=== PATIENT | male | born 1965 | race Caucasian/White ===

== ENCOUNTER 2018-03-23 16:16 | Emergency (ER) | payer OTHER, SELFPAY ==
[2018-03-23 16:21] VITALS: BP 172/101; PULSE 69; RESP 16; TEMP 36.3; O2SAT 100
--- NOTE | 2018-03-23 16:50 | PC.NURSE ---
attempted to get EKG from the walkin clinic, they said it was scanned in, unable to see it in cardio clinical psychologist licensed, made RT aware to help retrieve it.
--- NOTE | 2018-03-23 16:55 | PC.NURSE ---
unable to obtain EKG from earlier today at [facility], called [facility] back. they are looking for hard copy.
[2018-03-23 16:56] VITALS: BP 157/94; PULSE 76; RESP 16; O2SAT 100
--- NOTE | 2018-03-23 17:10 | DI.RAD.S_ITS ---
PROCEDURE: XR CHEST 1V INDICATIONS: dizziness TECHNIQUE: One view of the chest was acquired. COMPARISON: None. FINDINGS: Surgical changes and devices: None. Lungs and pleura: No pleural effusions or pneumothorax. Lungs are clear. Mediastinum: Mediastinal contours appear normal. Heart size is normal. Bones and chest wall: No suspicious bony lesions. Overlying soft tissues appear unremarkable. IMPRESSION: No acute cardiopulmonary disease. Dictated by: Mar Felix M.D. on 03/23/2018 at 17:36 Approved by: Mar Felix M.D. on 03/23/2018 at 17:37
[2018-03-23 17:21] LABS: Add Manual Diff / Slide Review NO; Basophils Percent Auto 0.4 % (0-2); Eosinophils Percent Auto 1.8 % (2-4); Hematocrit 44.6 % (41-53); Hemoglobin 15.2 g/dL (13.5-17.5); Lymphocytes Percent Auto 19.4 % (25-40); Mean Corpuscular HGB Conc 34.2 % (30-36); Mean Corpuscular Hemoglobin 30.6 PG (26-34); Mean Corpuscular Volume 89.4 fL (80-100); Monocytes Percent Auto 7.7 % (3-14); Neutrophils Absolute Auto 5600 /uL (1500-7000); Neutrophils Percent Auto 70.7 % (50-75); Platelet Count 227 X10^3/uL (150-400); Red Blood Cell Count 4.99 X10^6/uL (4.5-5.9); Red Cell Distribution Width 13.4 % (11.6-14.8)
[2018-03-23 17:24] LABS: Alanine Aminotransferase 41 IU/L (21-72); Albumin 4.9 g/dL (3.5-5.0); Albumin Globulin Ratio 1.5 (1.0-2.8); Alkaline Phosphatase 56 U/L (38-126); Aspartate Aminotransferase 33 IU/L (17-59); BUN Creatinine Ratio 16.7 (6-22); Bilirubin Total 0.6 mg/dL (0.2-1.3); Blood Urea Nitrogen 15 mg/dL (9-20); Calcium 9.4 mg/dL (8.4-10.2); Carbon Dioxide 27 mmol/L (22-32); Chloride 102 mmol/L (98-107); Creatine Kinase 137 U/L (55-170); Estimated Glomerular Filt Rate > 60.0 mL/min (>60); Globulin 3.3 g/dL (1.7-4.1); Glucose 91 mg/dL (70-100); HEMOLYSIS < 15 (0-50); Potassium 3.8 mmol/L (3.4-5.1); Sodium 144 mmol/L (137-145); Total Protein 8.2 g/dL (6.3-8.2)
[2018-03-23] MEDS: SODIUM CHLORIDE 0.9% 1,000 ML 1000 ML IV (17:26)
[2018-03-23 17:36] LABS: Troponin I < 0.012 ng/mL (0.01-0.034)
[2018-03-23 17:40] LABS: CKMB % Relative Index 1.7 % (1.5-5.0); Creatine Kinase MB 2.31 ng/mL (<2.37)
--- NOTE | 2018-03-23 17:53 | ED.DIZZY ---
HPI - Dizziness General Chief Complaint: Dizziness Stated Complaint: SENT FOR LAB WORK Time Seen by Provider: 03/23/18 16:31 Source: patient Mode of arrival: ambulatory Limitations: no limitations History of Present Illness HPI Narrative: Patient was sent to the emergency department after presenting at clinic with lightheadedness/dizziness. The walk-in clinic provider called and requested that the patient be seen here in the emergency department for workup for his dizziness, which walk-in provider was not able to perform. complaint: lightheadedness Onset (ago): day(s) Timing: gradual onset Description: lightheadedness History of similar episodes: No History of trauma: No Severity: mild Relieving factors: nothing Exacerbating factors: position Associated symptoms: denies other symptoms Related Data Home Medications Medication Instructions Recorded Confirmed No Known Home Medications 03/23/18 03/23/18 Allergies Allergy/AdvReac Type Severity Reaction Status Date / Time No Known Allergies Allergy Uncoded 03/23/18 16:21 Review of Systems Review of Systems All systems reviewed & are unremarkable except as noted in HPI and below Constitutional Denies chills, Denies fever(s), Denies lethargy and Denies weakness Eyes Denies change in vision, Denies eye discharge, Denies irritation and Denies loss of vision ENT Ears, Nose, Mouth, and Throat: Denies change in voice, Reports dizziness, Denies neck pain and Denies sore throat Cardiovascular Denies chest pain, Denies irregular heart rhythm, Reports lightheadedness, Denies palpitations, Denies dyspnea, Denies dyspnea on exertion and Denies orthopnea Respiratory Denies cough, Denies dyspnea, Denies dyspnea on exertion and Denies wheezing Gastrointestinal Gastrointestinal: Denies abdominal pain, Denies change in bowel habits, Denies diarrhea, Denies nausea and Denies vomiting Genitourinary Denies hematuria, Denies flank pain, Denies urinary incontinence and Denies urinary urgency Musculoskeletal Denies neck pain Integumentary/Breasts Denies pruritus, Denies erythema, Denies rash and Denies wounds Neurologic Denies confusion, Reports dizziness, Denies loss of vision and Denies weakness Psychiatric Denies anxiety, Denies confusion, Denies depression, Denies homicidal ideation and Denies suicidal ideation Endocrine Denies palpitations Hematologic/Lymphatic Denies easy bruising Allergic/Immunologic Denies wheezing [facility] Medical History Healthy adult (Acute) Surgical History No pertinent past surgical history (Acute) Social History Smoking Status: Never smoker Exam Initial Vital Signs Initial Vital Signs: Vital Signs Temperature 97.3 F L 03/23/18 16:21 Pulse Rate 69 03/23/18 16:21 Respiratory Rate 16 03/23/18 16:21 Blood Pressure 172/101 H 03/23/18 16:21 Pulse Oximetry 100 03/23/18 16:21 Const General: cooperative and well developed Nutritional Appearance: well nourished Orientation: alert, awake, oriented x3 and not confused HENMT Head: normocephalic and atraumatic Ears: external ears normal Nose: external nose normal and No nasal discharge Face and sinus: face symmetric and No dry mucous membranes Mouth: oral mucosae normal and moist mucous membranes Teeth and gingiva: dentition normal Eyes General: appearance normal, both eyes and all related structures Eyelids: eyelids normal Conjunctivae: conjunctivae normal Sclera: sclerae normal Pupils: PERRL EOM: EOM intact bilaterally Neck Neck: normal visual inspection, trachea midline, No lymphadenopathy, No midline deformity and No JVD Lymphatic: No lymphedema Chest Chest: normal inspection of the chest Resp Effort & Inspection: normal respiratory effort, able to speak in complete sentences, no respiratory distress and no use of accessory muscles Auscultation: clear to auscultation bilaterally, no rales, no rhonchi and no wheezes Cardio Rate: regular rate Rhythm: regular rhythm Heart Sounds: no click, no gallops, no murmurs and no rubs Pulses: normal peripheral pulses GI Inspection: non-distended Palpation: soft, no hepatosplenomegaly, No guarding, No pulsatile mass and No tender Back/Spine/Pelvis Back: No CVA tenderness Cervical Spine: cervical ROM normal and No pain with cervical ROM Thoracic/Lumbar Spine: thoracic and lumbar spine normal to inspection Skin General: no rashes or lesions noted, No jaundice and No petechiae Neuro General: alert, oriented x3, gait normal and no focal motor deficits Speech: speech normal Extrem General: full ROM, no clubbing, cyanosis or edema, no pedal edema and no calf tenderness Psych Appearance: well kempt Mental Status: mental status grossly normal Attitude: cooperative Thought Content: normal and suicidality Judgment: judgment good Course Course Narrative: Patient was given a L of 0.9 normal saline, and worked up with laboratory studies and EKG for his lightheadedness. Workup was unremarkable. We have discussed that no emergent cause the patient's symptoms have been found today. The patient continues to have feelings of lightheadedness or palpitations, then he will need to follow up his primary care physician and probably wear a Holter monitor to further evaluate what may be going on. We have also discussed the usual indications for return to the emergency department. Orders Ordered: Discontinued Medications Sodium Chloride (Normal Saline 0.9%) 1,000 mls @ 1,000 mls/hr IV BOLUS ONE Stop: 03/23/18 18:09 Last Infusion: 03/23/18 18:24 Dose: 0 mls/hr Admin: 03/23/18 17:26 Dose: 1,000 mls/hr Vital Signs - 8 hr 03/23/18 16:21 03/23/18 16:56 Temperature 97.3 F L Pulse Rate 69 76 Respiratory Rate 16 16 Blood Pressure 172/101 H Blood Pressure [Left Arm] 157/94 H Pulse Oximetry 100 100 MDM - Dizziness Medical Records Attestation: I reviewed the patient's medical records. Lab Data Attestation: I reviewed the patient's lab results. Result diagrams: 03/23/18 16:35 03/23/18 16:35 Lab Results 03/23/18 03/23/18 03/23/18 Range/Units 16:35 16:35 16:35 WBC 8.0 (4.5-11.0) X10^3/uL RBC 4.99 (4.5-5.9) X10^6/uL Hgb 15.2 (13.5-17.5) g/dL Hct 44.6 (41-53) % MCV 89.4 (80-100) fL MCH 30.6 (26-34) PG MCHC 34.2 (30-36) % RDW 13.4 (11.6-14.8) % Plt Count 227 (150-400) X10^3/uL Neut % (Auto) 70.7 (50-75) % Lymph % (Auto) 19.4 L (25-40) % Hanson % (Auto) 7.7 (3-14) % Eos % (Auto) 1.8 L (2-4) % Baso % (Auto) 0.4 (0-2) % Neut # (Auto) 5600 (5442-2727) /uL Sodium 144 (137-145) mmol/L Potassium 3.8 (3.4-5.1) mmol/L Chloride 102 (98-107) mmol/L Carbon Dioxide 27 (22-32) mmol/L BUN 15 (9-20) mg/dL Creatinine 0.90 (0.66-1.25) mg/dL Estimated GFR > 60.0 (>60) mL/min BUN/Creatinine Ratio 16.7 (6-22) Glucose 91 (70-100) mg/dL Calcium 9.4 (8.4-10.2) mg/dL Total Bilirubin 0.6 (0.2-1.3) mg/dL AST 33 (17-59) IU/L ALT 41 (21-72) IU/L Alkaline Phosphatase 56 (38-126) U/L Total Creatine Kinase 137 (55-170) U/L CK-MB (CK-2) 2.31 (<2.37) ng/mL CK-MB (CK-2) Rel Index 1.7 (1.5-5.0) % Troponin I < 0.012 (0.01-0.034) ng/mL Total Protein 8.2 (6.3-8.2) g/dL Albumin 4.9 (3.5-5.0) g/dL Globulin 3.3 (1.7-4.1) g/dL Albumin/Globulin Ratio 1.5 (1.0-2.8) TSH 4.62 (0.47-4.68) uIU/mL ECG Data Attestation: I personally reviewed and interpreted this ECG as follows: Interpretation: Twelve lead EKG performed March 23, 2018 at 4:55 p.m., as follows: Regular ventricular rhythm with a rate of 72 beats per minute HI interval 195 millisecond QRS duration 103 millisecond QTC interval [address] T wave changes In summary: Normal sinus rhythm, incomplete right bundle branch block, no STEMI; borderline EKG as interpreted by ED MD. Improved when compared with EKG performed earlier today at 3:57 p.m.. Discharge Plan Departure Patient Disposition: Home Clinical Impression: Near syncope Discharge Date/Time: 03/23/18 18:30 Interventions: ED Discharge Assessment Last Done: 03/23/18 18:30 Instructions: DI for Dizziness-Nonvertigo Activity Restrictions/Additional Instructions: All of your labs look good, as does your EKG. There is no evidence of a serious condition causing your symptoms at this time. Please follow up in primary care to discuss having a cardiac stress test done, and possibly, wearing a Holter monitor. If you have more severe episodes that do not resolve on their own, or should you experience chest pain shortness of breath along with further dizziness, please return to the emergency department. Prescriptions: No Action No Known Home Medications RF: 0 Referrals: [facility] [Provider Group] [facility] [Provider Group]
[2018-03-23 18:06] LABS: Thyroid Stimulating Hormone 4.62 uIU/mL (0.47-4.68)
[2018-03-23 18:17] VITALS: BP 143/86; PULSE 71; RESP 11; O2SAT 100
== END 2018-03-23 18:30 | disposition home or self-care (01) ==
PROVIDERS: Emergency Provider Emergency Medicine
DX: R55 Syncope and collapse (principal)
CPT/HCPCS: 36591; 71045; 80053; 82550; 82553; 84443; 84484; 85025; 93005; 93010; 93041; 96360; 99283; 99285

== ENCOUNTER → 2018-12-06 16:43 | Outpatient (CLI) | payer OTHER, SELFPAY ==
--- NOTE | 2018-12-06 16:46 | DI.RAD.S_ITS ---
PROCEDURE: XR FOOT LT MIN 3V INDICATIONS: Heel pain and swelling, limping gait TECHNIQUE: 3 views of the foot were acquired. COMPARISON: None. FINDINGS: Bones: No fractures or dislocations. No suspicious bony lesions. Soft tissues: No tibiotalar joint effusion. Achilles tendon appears normal. IMPRESSION: No evidence acute bony abnormality of the left foot Dictated by: Clay Andino M.D. on 12/06/2018 at 17:01 Approved by: Clay Andino M.D. on 12/06/2018 at 17:02
== END ==
PROVIDERS: Visit Provider Physician Assistant
DX: M79.672 Pain in left foot (principal); R26.89 Other abnormalities of gait and mobility
CPT/HCPCS: 73630

== ENCOUNTER → 2019-06-16 08:10 | Outpatient (CLI) | payer OTHER, SELFPAY ==
[2019-06-16 09:37] LABS: Add Manual Diff / Slide Review NO; Basophils Absolute Auto 0 /uL (0-100); Basophils Percent Auto 0.9 % (0-2); Eosinophils Absolute Auto 200 /uL (0-450); Eosinophils Percent Auto 3.7 % (2-4); Hematocrit 43.6 % (41-53); Lymphocytes Absolute Auto 1000 /uL (1100-4500); Lymphocytes Percent Auto 19.9 % (25-40); Mean Corpuscular HGB Conc 34.5 % (30-36); Mean Corpuscular Hemoglobin 31.3 PG (26-34); Mean Corpuscular Volume 90.6 fL (80-100); Monocytes Absolute Auto 400 /uL (0-900); Monocytes Percent Auto 8.3 % (3-14); Neutrophils Absolute Auto 3500 /uL (1500-7000); Neutrophils Percent Auto 67.2 % (50-75); Platelet Count 219 X10^3/uL (150-400); Red Blood Cell Count 4.81 X10^6/uL (4.5-5.9); Red Cell Distribution Width 12.9 % (11.6-14.8); White Blood Cell Count 5.3 X10^3/uL (4.5-11.0)
[2019-06-16 09:52] LABS: Hemoglobin A1C% w Est Avg Glu 5.5 % (4.0-6.0)
[2019-06-16 11:13] LABS: Alanine Aminotransferase 44 IU/L (<50); Albumin 4.6 g/dL (3.5-5.0); Albumin Globulin Ratio 1.5 (1.0-2.8); Alkaline Phosphatase 57 U/L (38-126); Aspartate Aminotransferase 30 IU/L (17-59); Bilirubin Total 1.1 mg/dL (0.2-1.3); Blood Urea Nitrogen 12 mg/dL (9-20); Calcium 9.9 mg/dL (8.4-10.2); Carbon Dioxide 27 mmol/L (22-32); Chloride 103 mmol/L (98-107); Cholesterol 233 mg/dL (140-199); Estimated Glomerular Filt Rate > 60.0 mL/min (>60); Glucose 106 mg/dL (70-100); HDL Cholesterol 30 mg/dL (40-60); HEMOLYSIS < 15 (0-50); LDL Cholesterol Calculated 160 mg/dL (<100); Potassium 4.4 mmol/L (3.4-5.1); Sodium 139 mmol/L (137-145); Total Protein 7.6 g/dL (6.3-8.2); Triglycerides 215 mg/dL (35-150)
== END ==
PROVIDERS: PCP Family Medicine; Referring Provider Family Medicine; Visit Provider Family Medicine
DX: Z00.00 Encounter for general adult medical examination without abnormal findings (principal)
CPT/HCPCS: 36415; 80053; 80061; 83036; 84443; 85025

== ENCOUNTER → 2020-01-08 15:24 | Outpatient (CLI) | payer OTHER, SELFPAY ==
[2020-01-10 08:40] LABS: COVID19 Sendout Not Detected (Not Detect)
== END ==
PROVIDERS: PCP Family Medicine; Visit Provider Physician Assistant
DX: Z11.59 Encounter for screening for other viral diseases (principal)
CPT/HCPCS: 87635

== ENCOUNTER → 2020-01-10 07:00 | Outpatient (CLI) | payer OTHER, SELFPAY ==
[2020-01-10 07:53] LABS: Cholesterol 156 mg/dL (140-199); HDL Cholesterol 31 mg/dL (40-60); LDL Cholesterol Calculated 97 mg/dL (<100); Triglycerides 138 mg/dL (35-150)
== END ==
PROVIDERS: PCP Family Medicine; Referring Provider Family Medicine; Visit Provider Family Medicine
DX: E78.89 Other lipoprotein metabolism disorders (principal)
CPT/HCPCS: 36415; 80061

== ENCOUNTER 2020-01-11 07:26 | Day surgery (SDC) | payer OTHER, SELFPAY ==
--- NOTE | 2020-01-11 | PATH_ITS ---
[facility] Accession Number: [id number] . 01 Material submitted: . body - POLYP AT 60CM . 02 Diagnosis: Colon, Polyp at 60 cm, Biopsy: Tubular adenoma in 1 of 3 fragments. Additional levels were examined. [facility] 01/15/2020 1541 Local . 02 Electronically signed: . Edna Jacobs MD, Pathologist NPI- [id number] . 01 Gross description: . The specimen is received in formalin, labeled polyp at 60 cm, and consists of four agee-pink fragments of soft tissue measuring 0.5 x 0.4 x 0.2 cm in aggregate. The specimen is entirely submitted in cassette A1. ([id number]) /FRR 01/12/20208 Local . 02 Pathologist provided ICD-10: D12.6 . 02 CPT . 283570 Performed at: 01 [facility] [address] [facility], [place], [place] [id number] MD Mark Sanford MD Phone: [phone] Performed at: 02 [facility] [address] [place], [place] [id number] MD Edna Jacobs MD Phone: [phone]
[2020-01-11 07:42] VITALS: BP 156/98; PULSE 70; RESP 16; TEMP 36; O2SAT 100; BMI 27.5
[2020-01-11] MEDS: SODIUM CHLORIDE 0.9% 1,000 ML 200 ML IV (07:50)
--- NOTE | 2020-01-11 08:34 | PM.HP.1 ---
History of Present Illness History of Present Illness Date Patient Seen: 01/11/20 Time Patient Seen: 08:34 Chief complaint: SCREENING COLONOSCOPY Narrative: This is a 54-year-old man who is here for his 1st screening colonoscopy. He denies any melena, hematochezia, unexplained abdominal pain, unexplained weight loss. He denies any family history of colon cancer colon polyps. ROS: Thirteen system review is otherwise negative other than as mentioned below and in HPI. PE: GENERAL: Well groomed and cooperative. Appears stated age. Answers questions promptly and appropriately. Vital signs noted. HENT: Normocephalic, atraumatic. Hearing intact. EYES: Conjunctiva pink, sclera white, no periorbital swelling. CARDIOVASCULAR: Regular rate. No pedal edema. RESPIRATORY: Non-tachypneic, breathing comfortably on room air. GASTROINTESTINAL: Abdomen soft and non-distended GENITALURINARY: No flank tenderness. MUSCULOSKELETAL: Equal tone and mass bilaterally. SKIN: Warm, dry, soft, appropriate color for ethnicity. No other lesions, rashes, or wounds. NEURO: Alert and Oriented X 3. No gross sensory deficits, or cognitive issues. PSYCH: Appropriate affect and mood. Patient History Medical History Allergies (Chronic ~1999) Foot pain (Chronic ~2018) Gout (Inactive ~2016) Healthy adult (Acute) Skin problem (Inactive ~2018) Well adult exam (Acute) Surgical History No pertinent past surgical history (Acute) Family & Social History Family History Grandfather History of heart disease Tobacco & Substance use: Smoking Status Never smoker alcohol intake current alcohol intake frequency 0-2 drinks per day Substance Use Type does not use Meds Home Medications and Allergies Home Medications Medication Instructions Recorded Confirmed Type No Known Home Medications 03/23/18 01/11/20 History Allergies Allergy/AdvReac Type Severity Reaction Status Date / Time No Known Drug Allergies Allergy Verified 01/11/20 07:41 Exam Vital Signs (past 8 hours): - 01/11/20 07:42 Temperature 96.8 F L Pulse Rate 70 Respiratory Rate 16 Blood Pressure 156/98 H Pulse Oximetry 100 Oxygen Delivery Method Room Air Assessment & Plan Assessment and plan (1) At average risk for colon cancer: Status: Acute Assessment & Plan narrative: Risks and benefits of screening colonoscopy and possible polypectomy were discussed with the patient including risk of bleeding, perforation, need for additional procedures, risks of anesthesia. The patient desires to proceed with the colonoscopy procedure. COVID-19 COVID-19 status: Negative Result date/Date tested (Pos, Neg/Pending): 01/08/20 Time Spent With Patient Time with patient: 15-24 minutes Quality VTE Deep Vein Thrombosis/Pulmonary Embolism Present on Admission: No
--- NOTE | 2020-01-11 08:36 | P.OP.ENDO_ITS ---
Operative Date/Time/Diagnoses Date of procedure: 01/11/20 Time of procedure: 08:36 Pre-op diagnosis: Average risk for colon cancer Post-op diagnosis: other (Single adenomatous appearing polyp at 60 cm. Mild diverticulosis in the sigmoid and descending colon ) Procedure & Clinicians Study performed: Colonoscopy Procedural sedation performed by the endoscopist Polypectomy with cold snare and cold forceps Same procedure as scheduled: Yes Indications: Average risk for colon cancer, age 54, never had a screening colonoscopy Surgeon: Arabella Womack Procedure Notes SCOAP/Timeout: Performed Procedure in detail: The patient was brought to the room and placed in left lateral decubitus position with all bony prominences padded. A time-out was performed and then the patient was given procedural sedation starting with 4 mg of Versed and 100 mcg of fentanyl. Vitals were monitored throughout the procedure and remained stable. Once adequately sedated, the procedure was begun. A rectal exam was performed revealing no abnormalities. The colonoscope was then introduced to the rectum and advanced to the cecum in the usual fashion. The cecum was identified by the appendiceal orifice, the mucosal tri- fold, and the ileocecal valve. The scope was then retracted while rotating side to side and examining each mucosal fold. A 5 mm adenomatous appearing polyp was found at 60 cm. It was removed with cold snare, and then the remaining stalk was taken with cold forceps to ensure complete removal. Mild diverticulosis was seen in the decent and sigmoid colon. No evidence of diverticulitis. At the conclusion of the procedure retroflexion was performed and small grade 1-2 internal hemorrhoids without stigmata of bleeding were seen. The scope was then withdrawn from the rectum the procedure was concluded. The patient tolerated the procedure well and was transferred to the PACU in stable condition. Scope withdrawal time: 8 Sedation minutes: 24 Findings: diverticulosis and polyp Specimen(s): other (5 mm adenomatous polyp) Complications: none Impression: Single adenomatous polyp, low-grade diverticulosis Post-procedure Recommendations: Colonscopy in 10 years (So long as pathology is low-grade. Letter will be sent regarding final pathology and final recommendations for next colonoscopy.) Follow up: as needed Disposition: PACU
[2020-01-11] MEDS: MIDAZOLAM 5 MG/5 ML VIAL IV (08:38)
[2020-01-11] MEDS: fentaNYL 250 MCG/5 ML INJ IV (08:39)
[2020-01-11 09:09] VITALS: BP 119/77; PULSE 70; RESP 23; TEMP 36.6; O2SAT 98
[2020-01-11 09:13] VITALS: BP 110/72; PULSE 64; RESP 12; O2SAT 98
[2020-01-11 09:18] VITALS: BP 122/72; PULSE 66; RESP 12; O2SAT 99
[2020-01-11 09:22] VITALS: BP 118/73; PULSE 61; RESP 12; TEMP 36.4; O2SAT 99
== END 2020-01-11 09:30 | disposition home or self-care (01) ==
PROVIDERS: PCP Family Medicine; Referring Provider Family Medicine; Visit Provider Surgery
PROC: 0DJD8ZZ Inspection of Lower Intestinal Tract, Via Natural or Artificial Opening Endoscopic (ICD-10-PCS; CPT 45378; principal; 2020-01-11 08:30)
DX: Z12.11 Encounter for screening for malignant neoplasm of colon (principal); K57.30 Diverticulosis of large intestine without perforation or abscess without bleeding; K64.0 First degree hemorrhoids; D12.6 Benign neoplasm of colon, unspecified
CPT/HCPCS: 45385; 45380; 99152; J2250; J3010

== ENCOUNTER → 2024-06-16 07:33 | Outpatient (CLI) | payer BC, SELFPAY ==
[2024-06-16 08:59] LABS: Add Manual Diff / Slide Review NO; Basophils Absolute Auto 100 /uL (0-100); Basophils Percent Auto 1.2 % (0-2); Eosinophils Absolute Auto 100 /uL (0-450); Eosinophils Percent Auto 2.4 % (2-4); Hematocrit 42.5 % (41-53); Hemoglobin 14.8 g/dL (13.5-17.5); Lymphocytes Absolute Auto 1300 /uL (1100-4500); Lymphocytes Percent Auto 24.8 % (25-40); Mean Corpuscular HGB Conc 34.8 % (30-36); Mean Corpuscular Hemoglobin 30.9 PG (26-34); Mean Corpuscular Volume 88.8 fL (80-100); Monocytes Absolute Auto 500 /uL (0-900); Monocytes Percent Auto 10.1 % (3-14); Neutrophils Absolute Auto 3100 /uL (1500-7000); Neutrophils Percent Auto 61.5 % (50-75); Platelet Count 215 X10^3/uL (150-400); Red Blood Cell Count 4.79 X10^6/uL (4.5-5.9); White Blood Cell Count 5.1 X10^3/uL (4.5-11.0)
[2024-06-16 09:55] LABS: Alanine Aminotransferase 38 IU/L (<50); Albumin 4.7 g/dL (3.5-5.0); Albumin Globulin Ratio 1.7 (1.0-2.8); Alkaline Phosphatase 51 U/L (38-126); Aspartate Aminotransferase 33 IU/L (17-59); BUN Creatinine Ratio 14.1 (6-22); Blood Urea Nitrogen 11 mg/dL (9-20); Calcium 9.3 mg/dL (8.4-10.2); Carbon Dioxide 27 mmol/L (22-32); Chloride 103 mmol/L (98-107); Cholesterol 231 mg/dL (140-199); Estimated Glomerular Filt Rate > 60 mL/min (>60); Globulin 2.7 g/dL (1.7-4.1); Glucose 107 mg/dL (70-100); HDL Cholesterol 42 mg/dL (40-60); HEMOLYSIS < 15 (0-50); LDL Cholesterol Calculated 171 mg/dL (<100); Potassium 4.3 mmol/L (3.4-5.1); Sodium 139 mmol/L (137-145); Total Protein 7.4 g/dL (6.3-8.2); Triglycerides 91 mg/dL (35-150)
[2024-06-16 10:26] LABS: Prostate Specific Antigen 2.43 ng/mL (0.10-4.00)
== END ==
PROVIDERS: PCP Family Medicine; Referring Provider Family Medicine; Visit Provider Family Medicine
DX: Z00.00 Encounter for general adult medical examination without abnormal findings (principal); N40.1 Benign prostatic hyperplasia with lower urinary tract symptoms; N13.8 Other obstructive and reflux uropathy
CPT/HCPCS: 36415; 80053; 80061; 84153; 85025

== ENCOUNTER → 2024-12-22 07:58 | Outpatient (CLI) | payer BC, SELFPAY ==
[2024-12-22 09:19] LABS: HDL Cholesterol 44 mg/dL (40-60)
[2024-12-22 09:21] LABS: Cholesterol 217 mg/dL (140-199); Triglycerides 85 mg/dL (35-150)
[2024-12-22 09:22] LABS: Hemoglobin A1C% w Est Avg Glu 5.6 % (4.0-6.0)
== END ==
PROVIDERS: PCP Family Medicine; Referring Provider Family Medicine; Visit Provider Family Medicine
DX: R73.03 Prediabetes (principal); E78.00 Pure hypercholesterolemia, unspecified
CPT/HCPCS: 36415; 80061; 83036